=== PATIENT | male | born 1950 | race African-American/Black ===

== ENCOUNTER 2020-02-16 16:54 | Emergency (ER) | payer SELFPAY ==
[~2020-02-16] VITALS: Ht 177.8 cm; Wt 91.0 kg
[2020-02-16] MEDS ORDERED: SODIUM CHLORIDE 0.9% 1,000 ML IV ONE (17:03)
[2020-02-16] MEDS ORDERED: ONDANSETRON HCL 4MG/2ML INJ IV STA (17:03)
[2020-02-16] MEDS ORDERED: HALOPERIDOL LACTATE 5MG/ML VIAL IM ONE (17:15)
[2020-02-16] MEDS ORDERED: LEVETIRACETAM 1000MG/100ML 100 ML IV ONE (17:15)
[2020-02-16] MEDS ORDERED: LORAZEPAM 2MG/ML CPJ IM ONE (17:15)
[2020-02-16] MEDS ORDERED: LORAZEPAM 2MG/ML CPJ ONE (17:18)
[2020-02-16 17:42] LABS: BASOPHILS % 0.4 % (0.0-2.0); CHLORIDE 111 mEq/L (98-107); CLARITY URINE CLEAR (CLEAR); COLOR URINE YELLOW (YELLOW); EOSINOPHILS % 6.3 % (0.0-5.0); HEMATOCRIT. 44.8 % (42.0-52.0); HEMOGLOBIN. 14.8 g/dL (14.0-18.0); KETONES URINE TRACE (NEGATIVE); LEUKOCYTE ESTERASE URINE TRACE (NEGATIVE); LYMPHOCYTES % 21.7 % (20.0-50.0); MEAN CORPUSCULAR HEMOGLOBIN 27.5 pg (28.0-32.0); MEAN PLATELET VOLUME 8.9 fl (7.4-10.4); MONOCYTES % 6.6 % (2.0-8.0); NITRITE URINE NEGATIVE (NEGATIVE); OCCULT BLOOD URINE NEGATIVE (NEGATIVE); PH URINE 5.5 (4.5-8.0); PLATELET 185 x1000/uL (130-400); PROTEIN URINE NEGATIVE (NEGATIVE); RED CELL DISTRIBUTION WIDTH 16.2 % (11.6-14.6)
[2020-02-16 17:46] LABS: ETHANOL BLOOD < 10 mg/dL
[2020-02-16 17:47] LABS: INR 1.5; PROTHROMBIN TIME 16.1 sec (9.6-11.0)
[2020-02-16 17:56] LABS: *AMPHETAMINES SCREEN URINE NEGATIVE (NEGATIVE); *BARBITURATES SCREEN URINE NEGATIVE (NEGATIVE); *BENZODIAZEPINES SCREEN URINE NEGATIVE (NEGATIVE); *COCAINE SCREEN URINE PRESUMTIVE POSITIVE (NEGATIVE)
[2020-02-16 17:57] LABS: CANNABINOID URINE SCREEN PRESUMTIVE POSITIVE (NEGATIVE); METHADONE URINE SCREEN NEGATIVE (NEGATIVE); OPIATES URINE SCREEN NEGATIVE (NEGATIVE); PHENCYCLIDINE URINE SCREEN PRESUMTIVE POSITIVE (NEGATIVE)
[2020-02-17 03:13] VITALS: BP 125/82
== END 2020-02-17 03:14 | disposition home or self-care (01) ==
LOC: EDBD 16:54 → ER 16:54
DX: F19.10 Other psychoactive substance abuse, uncomplicated (principal); T40.991A Poisoning by other psychodysleptics [hallucinogens], accidental (unintentional), initial encounter; Y92.521 Bus station as the place of occurrence of the external cause; G93.89 Other specified disorders of brain; R56.9 Unspecified convulsions
CPT/HCPCS: 36415; 70450; 80053; 80305; 80320; 81003; 82962; 85025; 85610; 93005; 96361; 96372; 96374; 96375; 99285; J1630; J1953; J2060; J2405; J7030; G0480

== ENCOUNTER 2024-10-29 11:03 | Emergency (ER) | payer MEDICARE, MEDICAID ==
[~2024-10-29] VITALS: Ht 177.8 cm; Wt 74.0 kg
[2024-10-29 11:05] VITALS: O2SAT 99
[2024-10-29 12:06] LABS: CHLORIDE 102 mEq/L (98-107); SODIUM 138 mEq/L (136-145)
[2024-10-29] MEDS: SODIUM CHLORIDE 0.9% 1,000 ML IV ONE (12:06)
[2024-10-29] MEDS: LORAZEPAM 2MG/ML INJ IV ONE (12:06)
[2024-10-29 12:07] LABS: CARBON DIOXIDE 25 mEq/L (21-32)
[2024-10-29 12:08] LABS: CALCIUM 9.2 mg/dL (8.7-10.4)
[2024-10-29 12:12] LABS: CREATININE 1.2 mg/dL (0.6-1.3); GLUCOSE 107 mg/dL (70-105); UREA NITROGEN BLOOD 24 mg/dL (9-23)
[2024-10-29 12:14] LABS: ACETAMINOPHEN < 2 ug/mL (10-30)
[2024-10-29 12:15] LABS: BASOPHILS % 0.3 % (0.0-2.0); EOSINOPHILS % 1.3 % (0.0-5.0); HEMATOCRIT. 44.4 % (42.0-52.0); LYMPHOCYTES % 14.1 % (20.0-50.0); MEAN CORPUSCULAR HEMOGLOBIN 26.2 pg (28.0-32.0); MEAN CORPUSCULAR HGB CONC 31.5 g/dL (31.0-37.0); MEAN CORPUSCULAR VOLUME 83.1 fL (80.0-94.0); MEAN PLATELET VOLUME 9.2 fl (7.4-10.4); MONOCYTES % 8.5 % (2.0-8.0); NEUTROPHILS % 75.8 % (40.0-76.0); PLATELET 214 x1000/uL (130-400); RED BLOOD CELL COUNT 5.34 mill/uL (4.7-6.1); RED CELL DISTRIBUTION WIDTH 14.5 % (11.6-14.6); WHITE BLOOD COUNT 10.6 x1000/uL (4.5-11.0)
[2024-10-29 12:29] LABS: ETHANOL BLOOD < 10 mg/dL (<10)
[2024-10-29 12:44] LABS: CLARITY URINE CLEAR (CLEAR); COLOR URINE YELLOW (YELLOW); GLUCOSE URINE NEGATIVE (NEGATIVE); KETONES URINE NEGATIVE (NEGATIVE); LEUKOCYTE ESTERASE URINE NEGATIVE (NEGATIVE); NITRITE URINE NEGATIVE (NEGATIVE); OCCULT BLOOD URINE NEGATIVE (NEGATIVE); PH URINE 5.5 (4.5-8.0); PROTEIN URINE NEGATIVE (NEGATIVE); SPECIFIC GRAVITY URINE 1.007 (1.005-1.030); UROBILINOGEN URINE 0.2 E.U./dL (0.2-1.0)
[2024-10-29 12:56] LABS: *AMPHETAMINES SCREEN URINE NEGATIVE (NEGATIVE); *BENZODIAZEPINES SCREEN URINE NEGATIVE (NEGATIVE)
[2024-10-29 12:57] LABS: *BARBITURATES SCREEN URINE NEGATIVE (NEGATIVE); *COCAINE SCREEN URINE PRESUMPTIVE POSITIVE (NEGATIVE); CANNABINOID URINE SCREEN NEGATIVE (NEGATIVE); ECSTASY MDMA SCREEN URINE NEGATIVE (NEGATIVE); METHADONE URINE SCREEN NEGATIVE (NEGATIVE); OPIATES URINE SCREEN NEGATIVE (NEGATIVE); PHENCYCLIDINE URINE SCREEN NEGATIVE (NEGATIVE)
[2024-10-29 17:05] VITALS: TEMP 36.8
[2024-10-29 18:45] VITALS: BP 111/57; PULSE 87; RESP 17; O2SAT 100
== END 2024-10-29 19:05 | disposition home or self-care (01) ==
LOC: ER 11:03
DX: T40.5X1A Poisoning by cocaine, accidental (unintentional), initial encounter (principal); G93.40 Encephalopathy, unspecified; I67.82 Cerebral ischemia; Z98.890 Other specified postprocedural states; Z79.899 Other long term (current) drug therapy; Y92.480 Sidewalk as the place of occurrence of the external cause
CPT/HCPCS: 80305; 80048; 81003; 80307; 80329; 80320; 85025; 36415; 70450; 96374; 99284; J2060; J7030; G0480